=== PATIENT | male | born 1995 | race Caucasian/White ===

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

== ENCOUNTER 2018-03-31 22:14 | Emergency (ER) | payer MEDICAID ==
[2018-03-31 22:20] VITALS: BP 146/97
--- NOTE | 2018-03-31 22:20 | EDPHY ---
H & P Time Seen by Provider: 03/31/18 22:19 HPI/ROS: HPI: This is a 22-year-old male who presents with Chief Complaint: Acid in right eye Location: Right eye Quality: Chemical exposure Duration: 2 hr prior to arrival Signs and Symptoms: no fever, no nausea, no vomiting, no photophobia, no noise sensitivity, no neck stiffness, no ear pain, no tinnitus, no nasal congestion, no sinus pressure, no weakness, no radiation, no aura Timing: Acute Severity: Mild Context: Patient presents from work with splashing cleaning product that is considered to be ascitic into his right eye. He felt immediate, mild pain and discomfort. He flushed his eyes at work with 2 L normal saline. He took a picture of the MSDS that suggest ocular exposure to be flushed thoroughly. He reports no foreign body sensation, vision changes, headache, discharge. Tetanus is current Modifying Factors: Comment: ROS: A comprehensive 10 system review of systems is otherwise negative aside from elements mentioned in the history of present illness. MEDICAL/SURGICAL/SOCIAL HISTORY: Medical history: Asthma Surgical history: Tonsillectomy Social history: Family history noncontributory. General appearance: Well-developed, well-nourished young adult white male, polite and cooperative, awake and alert Visual Acuity: noted from Nurse's notes. Pupils: equal round and reactive to light. EOMI. Lids: no edema or swelling Skin: no proptosis, no periorbital erythema or swelling, no vesicles Conjunctivae: Mild injected, no discharge Cornea: exam with fluorescein shows no uptake Anterior chamber: normal, no hyphema or hypopyon Source: Patient Exam Limitations: No limitations - Personal History Current Tetanus Diphtheria and Acellular Pertussis (TDAP): Yes - Medical/Surgical History Hx Asthma: Yes Hx Chronic Respiratory Disease: No Hx Diabetes: No Hx Cardiac Disease: No Hx Renal Disease: No Hx Cirrhosis: No Hx Alcoholism: No Hx HIV/AIDS: No Hx Splenectomy or Spleen Trauma: No Other PMH: psh- tonsilectomy - Social History Smoking Status: Current every day smoker Constitutional: Initial Vital Signs Temperature (C) 37.1 C 03/31/18 22:16 Heart Rate 114 H 03/31/18 22:16 Respiratory Rate 18 03/31/18 22:16 Blood Pressure 146/97 H 03/31/18 22:16 O2 Sat (%) 92 03/31/18 22:16 O2 Delivery Mode Room Air Allergies/Adverse Reactions: Penicillins Allergy (Intermediate, Verified 03/31/18 22:20) Hives Cephalosporins Allergy (Verified 03/31/18 22:20) cephlahex Allergy (Uncoded 03/31/18 22:20) Home Medications: Medication Instructions Recorded NK [No Known Home Meds] 03/31/18 Medical Decision Making ED Course/Re-evaluation: Patient already irrigated eye for 15 min using 2 L of saline prior to arrival to the hospital. Ocular pH 7.0 upon arrival No signs of foreign body/corneal abrasion Given tobramycin drops in the emergency room and prescription for same. This patient was seen under the supervision of my secondary supervising physician. I evaluated care for this patient independently. Discussed this patient with Dr. Bunch. Differential Diagnosis: Differential diagnosis includes but is not limited to caustic dermal burn, conjunctivitis, carotid a conjunctivitis, corneal abrasion, corneal erosion. Departure - Departure Disposition: Home, Routine, Self-Care Clinical Impression: Chemical conjunctivitis of right eye Condition: Good Instructions: Chemical Eye Garcia (ED) Additional Instructions: Apply Tobramycin 1-2 drops into your right eye every 4 hr while awake x 5 days. Please avoid using your hands to touch your eyes. Wash your hands frequently with mild soap and water. Apply cool compresses for 15-20 minutes at a time several times per day for the next 1-2 days. Follow up with ophthalmology in 2-3 days if no improvement in symptoms. Eye Complaint: Return to the Emergency Department for any increase in eye pain, redness, swelling, discharge or any worsening of your vision. Referrals: Breanna Gaytan MD [Medical Doctor] - As per Instructions
[2018-03-31] MEDS ORDERED: FLUORESCEIN SODIUM 1 MG STRIP OP ONE (22:25)
[2018-03-31] MEDS ORDERED: PROPARACAINE 0.5% 15 ML OPHT DROP ONE (22:25)
[2018-03-31] MEDS ORDERED: TOBRAMYCIN 0.3% SOLN PREPACK OPHT.BTL TAKEHOME ONE (22:34)
== END 2018-03-31 22:41 | disposition home or self-care (01) ==
DX: T65.891A Toxic effect of other specified substances, accidental (unintentional), initial encounter (principal); H10.211 Acute toxic conjunctivitis, right eye; Y99.8 Other external cause status

== ENCOUNTER 2018-05-12 13:50 | Emergency (ER) | payer SELFPAY ==
--- NOTE | 2018-05-12 13:55 | EDPHY ---
H & P Time Seen by Provider: 05/12/18 13:52 - Medical/Surgical History Hx Asthma: Yes Hx Chronic Respiratory Disease: No Hx Diabetes: No Hx Cardiac Disease: No Hx Renal Disease: No Hx Cirrhosis: No Hx Alcoholism: No Hx HIV/AIDS: No Hx Splenectomy or Spleen Trauma: No Other PMH: psh- tonsilectomy - Social History Smoking Status: Current every day smoker Constitutional: Initial Vital Signs Temperature (C) 36.6 C 05/12/18 13:58 Heart Rate 105 H 05/12/18 13:58 Respiratory Rate 18 05/12/18 13:58 Blood Pressure 153/120 H 05/12/18 13:58 O2 Sat (%) 97 05/12/18 13:58 O2 Delivery Mode Room Air Allergies/Adverse Reactions: Penicillins Allergy (Intermediate, Verified 03/31/18 22:20) Hives Cephalosporins Allergy (Verified 03/31/18 22:20) cephlahex Allergy (Uncoded 03/31/18 22:20) Home Medications: Medication Instructions Recorded Ibuprofen [Motrin] 800 mg PO Q8 #20 tab 05/12/18 Medical Decision Making - Diagnostics Imaging: I viewed and interpreted images myself ED Course/Re-evaluation: CHIEF COMPLAINT: Right wrist pain HISTORY OF PRESENT ILLNESS: The patient is a 22 y/o male complaining of slow-onset right wrist pain. He states he is having less "mobility and movement" of his right wrist. He is employed at [employer] and believes the pain could be due to repetitive motion at work while using a wok. No chest pain, shortness of breath, abdominal pain, urinary or bowel complaints, numbness, paresthesias, fevers. REVIEW OF SYSTEMS: A comprehensive 10 system review of systems is otherwise negative aside from the elements mentioned in the history of present illness and medical decision making. PHYSICAL EXAM: HR, BP, O2 Sat, RR. Temp noted General Appearance: Alert, well hydrated, appropriate, and non-toxic appearing. Head: Atraumatic without scalp tenderness or obvious injury Eyes: Pupils equal, round, reactive to light and accommodation, EOMI, no trauma , no injection. Ears: Clear bilaterally, no perforation, normal landmarks Nose: Atraumatic, no rhinorrhea, clear. Throat: There is no erythema or exudates, no lesions, normal tonsils, mucus membranes moist. Neck: Supple, 2+ carotid upstroke, nontender, no lymphadenopathy. Respiratory: No retractions, no distress, no wheezes, and no accessory muscle use. Lungs are clear to auscultation bilaterally. Cardiovascular: Regular rate and rhythm, no murmurs, rubs, or gallops. Bilateral carotid, radial, dorsalis pedis, and posterior tibial pulses intact. Good capillary refill all extremities. Gastrointestinal: Abdomen is soft, nontender, non-distended, no masses, no rebound, no guarding, no peritoneal signs. Musculoskeletal: Normal active ROM of all extremities, atraumatic. Neurological: Alert, appropriate, and interactive. The patient has normal DTRs and non-focal cranial nerves, motor, sensory, and cerebellar exam. Skin: No rashes, good turgor, no nodules on palpation. Past medical history: Asthma Past surgical history: Tonsillectomy Family history: Denies Social history: Originally from [place], single, student DIAGNOSTICS/PROCEDURES/CRITICAL CARE TIME: Right wrist x-ray: No acute osseous injury Procedure: Splint placement. A velcro wrist splint was applied to the right wrist by the tech. After application of the splint I returned and re-examined the patient. The splint was adequately immobilizing the joint and distal to the splint the patient's circulation and sensation was intact. DIFFERENTIAL DIAGNOSIS: The differential diagnosis for the patient's wrist injury included but was not limited to fracture, ligamentous injury, tendon injury, contusion, muscular strain. MEDICAL DECISION MAKING: The patient is a 22 y/o male complaining of slow-onset right wrist pain. His physical exam is normal and I presume the pain is due to repetitively using the wok at work. Right wrist x-ray ordered; 20mg PO Prednisone administered. 1409: I reviewed patient's right wrist x-ray; there are no acute osseous findings. 1412: Reassessed patient and discussed imaging findings. Patient will have a velcro splint applied. I have advised him to follow up with an orthopedic or hand surgeon and to take ibuprofen as prescribed. Return precautions provided; patient is comfortable with this plan. Departure - Departure Disposition: Home, Routine, Self-Care Clinical Impression: Right wrist tendinitis Condition: Good Instructions: Tendinitis (ED) Additional Instructions: 1. Rest, ice, elevation. 2. Follow up with an orthopedic or hand surgeon within one week. 3. Return to the emergency department for worsening pain, swelling, numbness, weakness or other concerns. 4. Wear splint at all times until reevaluation. 5. Take ibuprofen as prescribed. Referrals: Jorge Belcher MD [Medical Doctor] - As per Instructions Herber Romero MD [Medical Doctor] - As per Instructions [facility],. [Clinic] - As per Instructions Prescriptions: Ibuprofen [Motrin] 800 mg PO Q8 #20 tab Report Scribed for: Jarad Howard Report Scribed by: Valorie Xavier Date of Report: 05/12/18 Time of Report: 13:53
[2018-05-12 14:01] VITALS: BP 153/120
[2018-05-12] MEDS ORDERED: predniSONE 20 MG TAB PO ONE (14:05)
== END 2018-05-12 14:21 | disposition home or self-care (01) ==
DX: M70.941 Unspecified soft tissue disorder related to use, overuse and pressure, right hand (principal); X50.3XXA Overexertion from repetitive movements, initial encounter; Y99.0 Civilian activity done for income or pay; Z87.891 Personal history of nicotine dependence
CPT/HCPCS: J7512; L3984